=== PATIENT | male | born 1980 | race African-American/Black ===

== ENCOUNTER → 2016-09-28 | Outpatient (CLI) | payer OTHER ==
--- NOTE | 2016-09-28 12:55 | REP ---
MRI LUMBAR SPINE WITHOUT AND WITH CONTRAST: 09/28/2016 CLINICAL HISTORY: Osteomyelitis, discitis at L5-S1 with paravertebral and epidural extension. On antibiotics. Order states last MRI 08/09/2016, at another facility, phlegmon, now 3 cm. White blood count and ESR are normal with CRP elevated. Patient with increasing pain, however. TECHNIQUE: Sagittal T1, T2 and STIR images with axial T1 and T2 sequences followed by infusion of 17 mL of ProHance with standard axial T1 and fat suppressed sagittal T1 sequences provided. COMPARISON: 05/31/2016 MRI. FINDINGS: The sagittal images show the normal lordosis maintained. There is narrowing of the disc space loss of the endplate margins and diffuse low signal on T1 and increased signal on T2 images of the L5 and S1 vertebral bodies. Paravertebral spinal abscess noted anterior and lateral in a heavy circumferential fashion to those vertebral bodies as well as an epidural abscess extension posterior to L5-S1 disc level extending down behind S1 and S2 vertebral bodies. That extension component on the sagittal images is the total length of 4.1 cm with thickness of 7 mm on the previous study in a length of 4.5 cm and a AP diameter of 10.6 mm, so it is smaller in its AP diameter. It still has hypointense periphery and hyperintense central areas within that epidural collection for the abscess. I do not see marrow signal abnormalities to suggest any acute abnormalities of S2 or S3 components or the L4 and above levels included. The L4-5 disc space and levels above show intact height and water signal marrow signal from L4 upward through T12 is normal. Conus terminates at upper aspect of L2. There is no central canal stenosis from T11-12 through L4-5 nor foraminal encroachment. The epidural abscess component is right paracentral abutting the ventral thecal sac and displacing the right S1 nerve root posteriorly. As above, its thickness is diminished from the previous study. There is enhancement of the epidural tissues from L5 through S3 with the abscess component to the measurement as described above. IMPRESSION: 1. L5-S1 discitis/osteomyelitis with some improvement in the appearance of the disc space and a paravertebral component abscess similar in size to previous study but with the epidural abscess component smaller its AP diameter and essentially unchanged in its vertical extent from the L5-S1 level through mid body of S2 and with enhancement of the epidural tissues otherwise unchanged. 2. No collapse of the L5 vertebral body. Endplates of L5 and S1 at that disc level are ill-defined anteriorly. Edema throughout both those vertebral bodies consistent with osteomyelitis. Although improved, it is still quite significant. Signed by Raj Perez MD 09/28/2016 05:14 P
== END ==
LOC: M RAD 10:45
PROVIDERS: ATTEND Surgery
DX: G06.1 Intraspinal abscess and granuloma (principal)
CPT/HCPCS: 72158; A9576

== ENCOUNTER → 2016-09-29 | Outpatient (REF) | payer OTHER | LOC: M LAB REF 10:56 | PROVIDERS: ATTEND Surgery | DX: M86.9 Osteomyelitis, unspecified (principal) ==

== ENCOUNTER → 2016-11-24 | Outpatient (CLI) | payer OTHER ==
--- NOTE | 2016-11-24 14:35 | REP ---
MRI study of the lumbar spine without and with IV gadolinium: History: L5-S1 diskitis with abscess. Patient being treated with Cefadroxil. Comparison MR studies are reviewed from September 28, 2016 and May 31, 2016. Comparison radiographs are from February 17, 2016. No other lower lumbar imaging studies are available. Gadolinium enhancement dose is 18 mL of intravenous ProHance. Technique: Sagittal and axial imaging planes were utilized. T1 and T2-weighted scans were obtained in the usual fashion with and without fat saturation and before and after gadolinium. MRI findings: Prior MR studies demonstrated evidence of acute diskitis at the L5-S1 level with paravertebral phlegmon, abscess formation, and epidural abscess formation. Today's study shows continued gradual improvement. The right ventral epidural abscess component extending caudally from the L5-S1 disc to the level of the mid body of S2 on the prior study is now very difficult to see and much smaller. This area measures 4 mm in transverse dimension today, previously 13. There is still some ventral dural or epidural enhancement on the postcontrast images extending from the lower margin of L5 to the lower margin of S2 but this is less thick and less extensive than on the September 28, 2016 study and much improved from May 31, 2016 study. The anterior paraspinal phlegmonous changes and previously noted abscess cavities are much improved as well. There is still inflammatory enhancement in granulation tissue along the anterior aspect of the L5, S1 and to a lesser extent S2 vertebral body but this is less extensive and thinner. Currently this process in the midline measures 11 mm where as on September 28, 2016 study there was a non-enhancing fluid collection visible and the process measured 17 mm in thickness. Analogous measurements in May of 2016 were 22 mm. No definite abscess is visible today. There is some irregularity of the endplates of L5 and S1 and there is enhancing marrow edema pattern in the posterior aspect of the L5. Low T1 low T2 signal intensity marrow changes are observed on either side of the L5-S1 disc which may reflect healing sclerosis. Previous study showed a intraosseous tract in the posterior aspect of L5 which is no longer visible. There is no significant thecal sac compression. The L4-5, L3-4, L2-3 and L1-2 disc levels remain unremarkable and intact. Impression: Continued gradual improvement L5-S1 diskitis with paravertebral and epidural inflammatory disease. Improvement is noted compared to the most recent prior study September 28, 2016. Signed by Phong Nick MD 11/24/2016 04:34 P
== END ==
LOC: M RAD 09:45
PROVIDERS: ATTEND Surgery
DX: M46.20 Osteomyelitis of vertebra, site unspecified (principal)
CPT/HCPCS: 72158; A9576

== ENCOUNTER → 2016-12-31 | Outpatient (REF) | payer OTHER ==
[2016-12-31 11:44] LABS: MEAN CORPUSCULAR HEMOGLOBIN 30.4 pg (27.0-33.0); MEAN CORPUSCULAR HGB CONC 33.9 g/dl (32.0-36.5); MEAN CORPUSCULAR VOLUME 89.9 fl (80.0-96.0); RED CELL DISTRIBUTION WIDTH 14.3 % (11.5-14.5); WHITE BLOOD COUNT 5.1 K/mm3 (4.0-10.0)
== END ==
LOC: M LAB REF 11:16
PROVIDERS: ATTEND Surgery
DX: M46.20 Osteomyelitis of vertebra, site unspecified (principal)